=== PATIENT | female | born 1975 | race Two or more races ===

== ENCOUNTER 2017-02-25 22:58 | Inpatient (IN) | payer OTHER ==
--- NOTE | ~2017-02-25 | DS ---
Discharge Summary [facility] [address] [place]. [address] NAME: LISSETH GRACE : [birth year] STATUS : DIS IN PAT#: [id number] AGE: 41 ADM/REG DATE : 02/26/17 MR#: [id number] REPORT SERV DATE: 02/28/17 DICTATED BY: ANANDA VARGHESE DATE: 02/27/17 REPORT STATUS : Draft TRANSCRIBED BY: MODL DATE: 02/27/17 ADMISSION DATE: 02/26/2017 DISCHARGE DATE: 02/27/2017 DISCHARGE DIAGNOSES: 1. Acute symptomatic anemia secondary to acute blood loss. 2. Upper gastrointestinal bleed status post benign EGD. 3. Menorrhalgia, likely the real reason for the blood loss anemia. 4. Hypotension/hemorrhagic shock on initial presentation. CONSULTANTS: 1. Darian Encinas M.D. of Gastroenterology. 2. Gynecology. PROCEDURES: EGD performed 02/27/2017 revealed nonbleeding erosive gastropathy. The patient was also found to have a grade B reflux esophagitis. The patient had multiple gastric polyps that were resected and retrieved. HOSPITAL COURSE: This is a 41-year-old lady who was admitted to the hospital with an acute symptomatic anemia with hemoglobin of 5.1. For details, please refer to excellent H and P dictated by Dr. Morgan. In summary, the patient was admitted and was put on Protonix drip. The Gastroenterology as well as Gynecology was consulted. The patient was given a total of 2 packed RBCs with her hemoglobin improving to 9.3 this morning. The patient was also given adequate fluid resuscitation as the patient was suffering from hypotension on initial presentation, likely due to hemorrhagic shock. The patient underwent EGD, and the EGD was actually fairly benign other than the esophagitis and gastritis. The patient is to take low dose Pepcid for three months and repeat evaluation as warranted. More importantly, the patient had a pelvic ultrasound done that showed an abnormally thickened endometrium measuring up to 1.9 cm with potential underlying polyps or small endometrial mass which could represent fibroids. The patient was seen by Gynecology, and the plan is to have D and C as an outpatient. The patient is now being discharged home with close outpatient followup plans. DISPOSITION: Home. MEDICATIONS: 1. Pepcid 20 mg p.o. daily for three months as a new medication. 2. Iron supplementation as a new medication. Otherwise, no medication changes. FOLLOWUP: 1. Please follow up with PCP in the next one to two weeks. 2. Please follow up with Dr. Darian Encinas, as instructed. 3. Please follow up with Gynecology as instructed. Total of 25 minutes spent in coordinating this patient's discharge today. Discharge Summary [address] [place]. [address] NAME: LISSETH GRACE : [birth year] STATUS : DIS IN PAT#: [id number] AGE: 41 ADM/REG DATE : 02/26/17 MR#: [id number] REPORT SERV DATE: 02/28/17 DICTATED BY: ANANDA VARGHESE DATE: 02/27/17 REPORT STATUS : Draft TRANSCRIBED BY: JOSEFINA DATE: 02/27/17 [facility] [place] Ananda Varghese MD / [id number] CC: Mary Velasco
--- NOTE | ~2017-02-25 | EGD ---
EGD REPORT [facility] [address] [address] NAME: LISSETH ABDULLAHI : [birth year] STATUS : ADM IN PAT#: [id number] AGE: 41 ADM/REG DATE : 02/26/17 MR#: [id number] REPORT SERV DATE: 02/27/17 DICTATED BY: FANNY CHEN DATE: 02/27/17 REPORT STATUS : Draft TRANSCRIBED BY: [employer] DATE: 02/27/17 [facility] Patient Name: Lisseth Abdullahi Date of : 1975 Attending MD: FANNY CHEN MD Procedure Date No Time: 02/27/2017 Procedure: Upper GI endoscopy Indications: Iron deficiency anemia, Melena Medicines: Monitored Anesthesia Care Complications: No immediate complications. Procedure: Pre-Anesthesia Assessment: - ASA Grade Assessment: II - A patient with mild systemic disease. After obtaining informed consent, the endoscope was passed under direct vision. Throughout the procedure, the patient's blood pressure, pulse, and oxygen saturations were monitored continuously. The GIF [id number] was introduced through the mouth, and advanced to the third part of duodenum. The upper GI endoscopy was accomplished with ease. The patient tolerated the procedure well. Findings: The nasopharynx was normal. LA Grade B (one or more mucosal breaks greater than 5 mm, not extending between the tops of two mucosal folds) esophagitis was found in the lower third of the esophagus. A small hiatus hernia was present. Multiple localized, medium-sized non-bleeding erosions were found in the gastric antrum. There were no stigmata of recent bleeding. Biopsies were taken with a cold forceps for histology. Verification of patient identification for the specimen was done. Estimated blood loss was minimal. Multiple 5 to 14 mm semi-sessile polyps with no bleeding and no stigmata of recent bleeding were found in the stomach. These polyps were removed with a hot snare. Resection and retrieval were complete. Verification of patient identification for the specimen was done. Estimated blood loss was minimal. The examined duodenum was normal. Biopsies were taken with a cold forceps for histology. Verification of patient identification for the specimen was done. Estimated blood loss was minimal. Impression: - Normal nasopharynx. - LA Grade B reflux esophagitis. Rule out Sherwood's esophagus. EGD REPORT [address] [address] NAME: LISSETH ABDULLAHI : [birth year] STATUS : ADM IN [facility]#: [id number] AGE: 41 ADM/REG DATE : 02/26/17 MR#: [id number] REPORT SERV DATE: 02/27/17 DICTATED BY: FANNY CHEN DATE: 02/27/17 REPORT STATUS : Draft TRANSCRIBED BY: [employer] DATE: 02/27/17 - Hiatus hernia. - Non-bleeding erosive gastropathy. Biopsied. - Multiple gastric polyps. Resected and retrieved. - Normal examined duodenum. Biopsied. Recommendation: - Use Pepcid (famotidine) 20 mg PO BID for 3 months. Procedure Code(s): --- Professional --- 29667, Esophagogastroduodenoscopy, flexible, transoral; with removal of tumor(s), polyp(s), or other lesion(s) by snare technique 41235, 59, Esophagogastroduodenoscopy, flexible, transoral; with biopsy, single or multiple Diagnosis Code(s): --- Professional --- K21.0, Gastro-esophageal reflux disease with esophagitis K44.9, Diaphragmatic hernia without obstruction or gangrene K31.9, Disease of stomach and duodenum, unspecified K31.7, Polyp of stomach and duodenum D50.9, Iron deficiency anemia, unspecified K92.1, Melena CPT copyright 2013 [employer]. All rights reserved. The codes documented in this report are preliminary and upon director of employer services review may be revised to meet current compliance requirements. FANNY CHEN MD 02/27/2017 1:01 PM This report has been signed electronically. Number of Addenda: 0 Note Initiated On: 02/27/2017 12:04 PM [address] [address]
--- NOTE | ~2017-02-25 | HP ---
History And Physical [address] [address] NAME: LISSETH GRACE : [birth year] STATUS : ADM IN PAT#: [id number] AGE: 41 ADM/REG DATE : 02/26/17 MR#: [id number] REPORT SERV DATE: 02/26/17 DICTATED BY: BRET RAMIREZ DATE: 02/26/17 REPORT STATUS : Draft TRANSCRIBED BY: MODRoderick DATE: 02/26/17 DATE OF ADMISSION: 02/26/2017 CHIEF COMPLAINT: A 41-year-old female, presenting with melena, menorrhagia, and evidence of severe acute blood loss anemia. HISTORY OF PRESENT ILLNESS: The patient's history was obtained through careful interview with the patient and [id number] coupled with review of [facility] medical records. The patient states that for more than a month she has had progressive severe fatigue, just feeling constantly tired. For about two weeks, she has noticed black stool and occasionally some red blood in her stool as well. She describes epigastric abdominal discomfort, a dull quality, 6 to 7/10 severity. She has had some reflux symptoms, nausea, but no vomiting. She also has chronically heavy menstrual cycles. Her menstrual cycles will often last 6-7 days, and she will have to use both tampons and pads simultaneously to control her bleeding. She does admit to taking nonsteroidal antiinflammatory drugs such as ibuprofen, Excedrin, migraine, sometimes on a daily basis. She has had no shortness of breath. No chest pain. She has felt lightheadedness. She sometimes feels lethargic and has been sleeping a lot recently. REVIEW OF SYSTEMS: Otherwise, a 14-point review of systems was obtained and was negative. PAST MEDICAL HISTORY: 1. Peptic ulcer disease about 10 years ago, seen by Dr. Encinas. 2. Irritable bowel syndrome. 3. Hypothyroidism. 4. Nephrolithiasis. 5. Microcytic anemia. 6. Anxiety, depression, and ADHD. 7. No cardiac disease. No lung disease. PAST SURGICAL HISTORY: 1. Thyroidectomy for goiter. 2. Tubal ligation. ALLERGIES: PENICILLIN. History And Physical [address] [address] NAME: LISSETH GRACE : [birth year] STATUS : ADM IN PAT#: [id number] AGE: 41 ADM/REG DATE : 02/26/17 MR#: [id number] REPORT SERV DATE: 02/26/17 DICTATED BY: BRET RAMIREZ DATE: 02/26/17 REPORT STATUS : Draft TRANSCRIBED BY: JOSEFINA DATE: 02/26/17 SOCIAL HISTORY: No tobacco abuse. Occasional alcohol use. She is . Lives in [place], [place]. She has a total of three children, ages 8, 14, and 16, all daughters. She is currently a full-time student in massage therapy. FAMILY HISTORY: Coronary artery disease, stroke, diabetes, and cancer. CURRENT MEDICATIONS: Include aspirin 650 mg p.o. daily as needed, vitamin D, Synthroid. Metformin, magnesium p.r.n., and nonsteroidal antiinflammatory drugs. PHYSICAL EXAMINATION: VITAL SIGNS: Temperature 98.2, pulse 70, blood pressure 99/66, respiratory rate 16, and O2 saturation 98% on room air. GENERAL: A pleasant, cooperative, female who describes no particular distress at this time though. HEENT: Pupils equal, round, and reactive to light. The patient has significant conjunctival pallor. No scleral icterus. Nares are patent. Oropharynx is clear of obstruction. Moist mucous membranes. NECK: Trachea midline. No thyromegaly. LYMPH: No cervical lymphadenopathy. No supraclavicular lymphadenopathy. RESPIRATORY: Clear to auscultation at bases. No wheezes, rales, or rhonchi. Normal respiratory effort. CARDIOVASCULAR: Regular rate and rhythm. No murmurs, rubs, or gallops. No extremity edema is appreciated. ABDOMEN: Minimal epigastric abdominal pain. No guarding or rebound. Nondistended. No hepatosplenomegaly. DERMATOLOGICAL: Warm and dry extremities. The patient has peripheral pallor, but no cyanosis. PSYCHIATRIC: Normal affect. Good mood. Alert and oriented x3. LABORATORY DATA: White blood cell count 7.5, hemoglobin 5.1, hematocrit 18.8, MCV of 57, and platelets 230. Sodium 141, potassium 3.8, chloride 108, bicarb 28, BUN 8, creatinine 0.71, glucose 100, troponin negative. INR 1.1. ASSESSMENT AND PLAN: 1. Acute blood loss anemia. Transfuse blood. The patient is symptomatic. 2. GI bleed. Place on IV proton pump inhibitor drip. Hold nonsteroidal antiinflammatory drugs. Consult with flooring grader, Dr. Encinas. 3. Menorrhagia. Check ultrasound of the uterus. 4. Hypotension. Monitor with blood transfusions. WHIT/JOSEFINA Bret Ramirez M.D. History And Physical [address] [address] NAME: LISSETH GRACE : [birth year] STATUS : ADM IN [facility]#: [id number] AGE: 41 ADM/REG DATE : 02/26/17 MR#: [id number] REPORT SERV DATE: 02/26/17 DICTATED BY: BRET RAMIREZ DATE: 02/26/17 REPORT STATUS : Draft TRANSCRIBED BY: JOSEFINA DATE: 02/26/17 / [id number] CC: Mary Velasco M.D.
--- NOTE | ~2017-02-25 | CN ---
Consultation Report [facility] [address] [place]. [address] NAME: ANAY ABDULLAHI : [birth year] STATUS : ADM IN [facility]#: [id number] AGE: 41 ADM/REG DATE : 02/26/17 MR#: [id number] REPORT SERV DATE: 02/26/17 DICTATED BY: SAGE HERNANDEZ DATE: 02/26/17 REPORT STATUS : Draft TRANSCRIBED BY: JOSEFINA DATE: 02/26/17 CONSULTATION DATE OF CONSULTATION: 02/26/2017 REASON FOR CONSULTATION: Anay Abdullahi is a 41-year-old female, presented with melena, menorrhagia, and evidence of severe anemia. HISTORY OF PRESENT ILLNESS: Ms Anay Abdullahi is a pleasant lady, who has a history of heavy menstrual periods for the past several months. The complains of fatigue and being tired all the time. About one month two weeks ago, she noticed that she had black stools and occasionally red blood in her stools. She has constant epigastric pain in the abdomen, which is dull in quality and some reflux disease. She does take nonsteroidal anti- inflammatory drugs. She is on aspirin 650 mg and takes ibuprofen and Excedrin for migraine headaches. She has heavy menstrual periods for the past several months. Does use tampons and pads to control her bleeding. She has some shortness of breath. No chest pain. No palpitation. REVIEW OF SYSTEMS: 10-point review of systems shows weakness, excessive menstrual bleeding, black stools. Otherwise, she is normal. PAST MEDICAL HISTORY: Significant for anxiety and depression, microcytic anemia, nephrolithiasis, hypothyroidism, irritable bowel syndrome, peptic ulcer disease, and I did scope her about 10 years ago. PAST SURGICAL HISTORY: Significant for thyroidectomy and tubal ligation. ALLERGIES: TO PENICILLIN. PHYSICAL EXAMINATION: VITAL SIGNS: On examination, her temperature is normal. NECK: Supple. Trachea is central. Carotids are well felt on both sides. CARDIOVASCULAR SYSTEM: S1 and S2 are heard. There is no S3. ABDOMEN: Soft. Bowel sounds are heard. Hernial orifices are normal. FAMILY HISTORY: Significant for coronary artery disease, stroke, diabetes, and cancer. CURRENT MEDICATIONS: Aspirin 650 mg p.o. daily, vitamin D, Synthroid, metformin, magnesium p.r.n., and non-steroidal anti-inflammatory drugs. LABORATORY DATA: Her lab show a white cell count of 7.5, hemoglobin is 5.1, hematocrit is 18.8, MCV is 57, platelet count is 230. Sodium is 141, potassium is 3.8, chloride is 108, INR is 1.1. Cardiac enzymes are normal. Consultation Report [place] [address] [place]. [address] NAME: ANAY ABDULLAHI : [birth year] STATUS : ADM IN [facility]#: [id number] AGE: 41 ADM/REG DATE : 02/26/17 MR#: [id number] REPORT SERV DATE: 02/26/17 DICTATED BY: SAGE HERNANDEZ DATE: 02/26/17 REPORT STATUS : Draft TRANSCRIBED BY: MODL DATE: 02/26/17 IMPRESSION: 1. Acute blood loss anemia. 2. Probable gastrointestinal bleed because of the black stools. 3. Menorrhagia. 4. Hypotension. 5. Hypothyroidism. 6. Diabetes mellitus. PLAN: 1. Continue Protonix drip, hemoglobin and hematocrit every four hours. If less than 8/24 to transfuse 1 unit of blood. 2. Agree with ultrasound of the abdomen and pelvis. Would do an upper endoscopy tomorrow by Dr. Paulie Duarte, whose is covering for me. I would also get a gynecology consult because of the excessive menorrhagia. BALBINA/JOSEFINA Sage Hernandez M.D. / [id number] CC: Mary Velasco SARA J
[2017-02-26 00:34] LABS: BASOPHILS 0.7 %; BASOPHILS ABSOLUTE 0.05 10/3/uL (0.0-0.16); EOSINOPHILS 1.6 %; EOSINOPHILS ABSOLUTE 0.12 10/3/uL (0.0-0.53); ER CBC TAT 0 Hrs 05 Mins; HEMATOCRIT 18.8 % (36.0-48.0); HEMOGLOBIN 5.1 g/dL (12.0-16.0); IMMATURE GRANULOCYTES 0.1 %; IMMATURE GRANULOCYTES ABSOLUTE 0.01 10/3/uL (0.0-0.11); LYMPHOCYTES 27.5 %; LYMPHOCYTES ABSOLUTE 2.05 10/3/uL (0.67-4.30); MONOCYTES 7.6 %; MONOCYTES ABSOLUTE 0.57 10/3/uL (0.21-1.20); NEUTROPHILS 62.5 %; NEUTROPHILS ABSOLUTE 4.66 10/3/uL (2.02-8.40); PLATELET COUNT 230 10/3/uL (150-400); RBC DISTRIBUTION WIDTH 18.6 % (12.0-16.0); RED CELL COUNT 3.29 10/6/uL (4.0-5.6); WHITE BLOOD CELLS 7.5 10/3/uL (4.5-10.5)
[2017-02-26 00:35] LABS: MANUAL DIFF NO %; MEAN CORPUS HGB CONC 27.1 g/dL (32.0-36.0); MEAN CORPUSCULAR HEMOGLOB 15.5 pg (26.0-34.0); MEAN CORPUSCULAR VOLUME 57.1 fL (80-100)
[2017-02-26 00:50] LABS: CALCIUM, SERUM 7.8 MG/DL (8.5-10.4); CHEST PAIN PROFILE TAT 0 Hrs 21 Mins; CHLORIDE, SERUM 108 MMOL/L (96-112); CO2 (CARBON DIOXIDE) 28 MMOL/L (24-34); CREATININE 0.71 MG/DL (0.55-1.02); GFR AFRICAN AMERICAN 124 ML/MIN (>=60); GFR NON AFRICAN AMERICAN 107 ML/MIN (>=60); GLUCOSE, SERUM 100 MG/DL (60-99); POTASSIUM, SERUM 3.8 MMOL/L (3.5-5.3); SODIUM, SERUM 141 MMOL/L (135-148); TROPONIN I <0.02 NG/ML (<0.05)
[2017-02-26 00:53] LABS: BUN (BLOOD UREA NITROGEN) 8 MG/DL (6-23)
[2017-02-26 00:54] LABS: INTERNATIONAL NORMAL RATI 1.1 UNITS (-); PARTIAL THROMBO TIME 27.3 SEC (22.5-37.2); PROTIME (NOT ORD) 13.8 SEC (12.0-14.5)
[2017-02-26 01:03] LABS: MICROCYTES 4+ (>50/OIF) (0-5/OIF); POIKILOCYTOSIS 1+ (5-10/OIF) (0-5/OIF); RBC MORPHOLOGY ABN (NORMAL)
[2017-02-26 01:04] LABS: PLATELET ESTIMATE ADQ (ADEQUATE)
[2017-02-26] MEDS ORDERED: VITD PO (01:38)
[2017-02-26] MEDS ORDERED: SYNTHROID175 MCG PO (01:38)
[2017-02-26] MEDS ORDERED: ASABAYER PO (01:39)
[2017-02-26] MEDS ORDERED: GLUCPH PO (01:39)
[2017-02-26] MEDS ORDERED: MAGNESIUM OTC PO (01:40)
[2017-02-26 12:03] LABS: BASOPHILS 0.9 %; BASOPHILS ABSOLUTE 0.05 10/3/uL (0.0-0.16); EOSINOPHILS 2.6 %; EOSINOPHILS ABSOLUTE 0.14 10/3/uL (0.0-0.53); IMMATURE GRANULOCYTES 0.2 %; IMMATURE GRANULOCYTES ABSOLUTE 0.01 10/3/uL (0.0-0.11); LYMPHOCYTES 26.8 %; LYMPHOCYTES ABSOLUTE 1.46 10/3/uL (0.67-4.30); MONOCYTES 6.6 %; MONOCYTES ABSOLUTE 0.36 10/3/uL (0.21-1.20); NEUTROPHILS 62.9 %; NEUTROPHILS ABSOLUTE 3.42 10/3/uL (2.02-8.40); PLATELET COUNT 242 10/3/uL (150-400); WHITE BLOOD CELLS 5.4 10/3/uL (4.5-10.5)
[2017-02-26 12:08] LABS: HEMOGLOBIN 7.9 g/dL (12.0-16.0); MANUAL DIFF NO %; MEAN CORPUS HGB CONC 29.3 g/dL (32.0-36.0); MEAN CORPUSCULAR VOLUME 61.6 fL (80-100); RBC DISTRIBUTION WIDTH 23.3 % (12.0-16.0); RED CELL COUNT 4.38 10/6/uL (4.0-5.6)
[2017-02-26 12:17] LABS: INTERNATIONAL NORMAL RATI 1.1 UNITS (-); PARTIAL THROMBO TIME 26.7 SEC (22.5-37.2)
[2017-02-26 12:28] LABS: HELMET CELLS OCC (0-2/OIF); MICROCYTES 4+ (>50/OIF) (0-5/OIF); PLATELET ESTIMATE ADQ (ADEQUATE); SCHISTOCYTES OCC (0-2/OIF)
[2017-02-26 12:29] LABS: BURR CELLS 1+ (3-10/OIF) (0-2/OIF); POLYCHROMASIA 1+ (2-5/OIF) (0-1/OIF); TEARDROP SHAPED RBCS OCC (0-2/OIF)
[2017-02-26 12:31] LABS: ALKALINE PHOSPHATASE 78 U/L (45-117); BUN (BLOOD UREA NITROGEN) 5 MG/DL (6-23); CALCIUM, SERUM 8.2 MG/DL (8.5-10.4); CHLORIDE, SERUM 107 MMOL/L (96-112); CO2 (CARBON DIOXIDE) 28 MMOL/L (24-34); CPK 84 U/L (0-200); CREATININE 0.64 MG/DL (0.55-1.02); GFR AFRICAN AMERICAN 130 ML/MIN (>=60); GFR NON AFRICAN AMERICAN 112 ML/MIN (>=60); GLUCOSE, SERUM 86 MG/DL (60-99); POTASSIUM, SERUM 4.4 MMOL/L (3.5-5.3); SGOT(AST) 9 U/L (5-40); SGPT(ALT) 11 U/L (5-65); SODIUM, SERUM 138 MMOL/L (135-148); TOTAL BILIRUBIN 0.7 MG/DL (0-1.2); TROPONIN I <0.02 NG/ML (<0.05)
[2017-02-26 12:32] LABS: A/G RATIO 0.8 (0.7-1.9); CK-MB 1.2 NG/ML
[2017-02-26 18:42] LABS: HEMATOCRIT 26.6 % (36.0-48.0); HEMOGLOBIN 7.7 g/dL (12.0-16.0)
[2017-02-27 06:56] LABS: BUN (BLOOD UREA NITROGEN) 12 MG/DL (6-23); CALCIUM, SERUM 8.5 MG/DL (8.5-10.4); CHLORIDE, SERUM 105 MMOL/L (96-112); CO2 (CARBON DIOXIDE) 27 MMOL/L (24-34); CREATININE 0.87 MG/DL (0.55-1.02); GFR AFRICAN AMERICAN 97 ML/MIN (>=60); GFR NON AFRICAN AMERICAN 84 ML/MIN (>=60); GLUCOSE, SERUM 90 MG/DL (60-99); POTASSIUM, SERUM 4.6 MMOL/L (3.5-5.3); SODIUM, SERUM 137 MMOL/L (135-148)
[2017-02-27 07:48] LABS: BASOPHILS 0.7 %; BASOPHILS ABSOLUTE 0.05 10/3/uL (0.0-0.16); EOSINOPHILS 2.7 %; EOSINOPHILS ABSOLUTE 0.19 10/3/uL (0.0-0.53); HEMOGLOBIN 9.2 g/dL (12.0-16.0); IMMATURE GRANULOCYTES 0.1 %; IMMATURE GRANULOCYTES ABSOLUTE 0.01 10/3/uL (0.0-0.11); LYMPHOCYTES ABSOLUTE 1.73 10/3/uL (0.67-4.30); MEAN CORPUS HGB CONC 29.8 g/dL (32.0-36.0); MONOCYTES 6.3 %; MONOCYTES ABSOLUTE 0.44 10/3/uL (0.21-1.20); NEUTROPHILS 65.2 %; NEUTROPHILS ABSOLUTE 4.51 10/3/uL (2.02-8.40); NUCLEATED RED BLOOD CELLS 0.8 /100WBC (0-0); PLATELET COUNT 226 10/3/uL (150-400); RBC DISTRIBUTION WIDTH 24.9 % (12.0-16.0); RED CELL COUNT 4.85 10/6/uL (4.0-5.6); WHITE BLOOD CELLS 6.9 10/3/uL (4.5-10.5)
[2017-02-27 07:49] LABS: HEMATOCRIT 30.9 % (36.0-48.0); MANUAL DIFF NO %; MEAN CORPUSCULAR VOLUME 63.7 fL (80-100)
[2017-02-27 08:34] LABS: ACANTHOCYTES OCC (0-2/OIF); HELMET CELLS OCC (0-2/OIF); HYPOCHROMIA 3+ (>30/OIF) (0-2/OIF); PLATELET ESTIMATE ADQ (ADEQUATE); POLYCHROMASIA 1+ (2-5/OIF) (0-1/OIF); SCHISTOCYTES OCC (0-2/OIF)
[2017-02-27 08:35] LABS: MICROCYTES 4+ (>50/OIF) (0-5/OIF); TARGET CELLS OCC (1-2/OIF) (0-1/OIF)
[2017-02-27 08:36] LABS: ELLIPTOCYTES 1+ (3-10/OIF) (0-2/OIF); SPHEROCYTES OCC (0-2/OIF); TEARDROP SHAPED RBCS FEW (3-10/OIF)
[2017-02-27] MEDS ORDERED: PEP20 PO (16:35)
[2017-02-27] MEDS ORDERED: FERROUS SULF325 M1 PO (16:35)
== END 2017-02-27 17:07 | disposition home or self-care (01) | DRG 377 ==
LOC: ER 22:58 → 5NO 02-26 01:46
PROVIDERS: Emergency Medicine; Hospitalist; Internal Medicine; Internal Medicine Gastroenterology
PROC: 30233N1 Transfusion of Nonautologous Red Blood Cells into Peripheral Vein, Percutaneous Approach (ICD-10-PCS; 2017-02-26)
PROC: 0DB98ZX Excision of Duodenum, Via Natural or Artificial Opening Endoscopic, Diagnostic (ICD-10-PCS; 2017-02-27)
PROC: 0DB68ZX Excision of Stomach, Via Natural or Artificial Opening Endoscopic, Diagnostic (ICD-10-PCS; principal; 2017-02-27 08:30)
PROC: 0DB68ZZ Excision of Stomach, Via Natural or Artificial Opening Endoscopic (ICD-10-PCS; 2017-02-27 08:30)
DX: K92.2 Gastrointestinal hemorrhage, unspecified (principal); R57.1 Hypovolemic shock; D62 Acute posthemorrhagic anemia; N92.0 Excessive and frequent menstruation with regular cycle; K21.0 Gastro-esophageal reflux disease with esophagitis; K31.7 Polyp of stomach and duodenum
CPT/HCPCS: 36415; 71010; 76830; 76856; 80048; 80053; 82270; 82550; 82553; 83735; 83880; 84443; 84484; 85014; 85018; 85025; 85610; 85730; 86850; 86900; 86901; 86920; 88305; 93005; 99291; A9270-GY; C9113; P9016